=== PATIENT | male | born 1960 | race Caucasian/White ===

== ENCOUNTER 2017-12-17 18:20 | Emergency (ER) | payer OTHER ==
--- NOTE | 2017-12-17 18:28 | PDOC ---
Rapid Medical Evaluation Chief Complaint: Head/Neck problem Time Seen by Provider: 12/17/17 18:26 Medical Evaluation: Allergies Allergy/AdvReac Type Severity Reaction Status Date / Time No Known Allergies Allergy Verified 06/12/12 10:03 12/17/17 18:27 I have performed a brief in-person evaluation of this patient. The patient presents with a chief complaint of: B/l UE numbness x 1 week, now just has LUE numbness. Also c/o stabbing L sided CP x few days. Had similar episode in 2011 w/ no findings on w/u. 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 12/17/17 18:30
[2017-12-17 18:29] VITALS: BP 146/83; PULSE 87; TEMP 98.1; BMI 22.1
[2017-12-17 19:04] LABS: BASO % 0.6 % (0-2.0); EOS % 2.6 % (0-4.5); HEMOGLOBIN 14.5 GM/dL (11.7-16.9); LYMPH % 38.4 % (8-40); MCH 28.5 pg (25.7-33.7); MEAN CELL VOLUME 86.2 fl (80-96); MEAN PLT VOLUME 7.9 fl (7.5-11.1); MONO % 9.3 % (3.8-10.2); NEUT % 49.1 % (42.8-82.8); PLATELET COUNT 213 K/MM3 (134-434); RBC 5.11 M/mm3 (4.00-5.60); RDW 13.3 % (11.9-15.9); WHITE BLOOD COUNT 5.6 K/mm3 (4.0-10.0)
[2017-12-17 19:33] LABS: ANION GAP 7 (8-16); BILIRUBIN,TOTAL 0.8 mg/dL (0.2-1.0); BLOOD UREA NITROGEN 13 mg/dL (7-18); CALCIUM 8.8 mg/dL (8.5-10.1); CHLORIDE 105 mmol/L (98-107); CO2 27 mmol/L (21-32); GLUCOSE,RANDOM 87 mg/dL (74-106); POTASSIUM 3.9 mmol/L (3.5-5.1); SGPT/ALT 49 U/L (12-78); SODIUM 139 mmol/L (136-145); TOT PROT 6.6 g/dl (6.4-8.2)
[2017-12-17 19:37] LABS: ALK PHOS 73 U/L (45-117); SGOT/AST 28 U/L (15-37)
[2017-12-17 21:12] LABS: URINE APPEARANCE CLEAR; URINE BILIRUBIN NEGATIVE (NEGATIVE); URINE BLOOD NEGATIVE (NEGATIVE); URINE COLOR STRAW; URINE GLUCOSE (UA) NEGATIVE (NEGATIVE); URINE KETONE NEGATIVE (NEGATIVE); URINE LEUK ESTERASE NEGATIVE (NEGATIVE); URINE NITRITE NEGATIVE (NEGATIVE); URINE PROTEIN NEGATIVE (NEGATIVE); URINE UROBILINOGEN NEGATIVE mg/dL (0.2-1.0)
[2017-12-17] MEDS ORDERED: ASPIRIN 81 MG CHEWABLE TABLETS ONE (23:09)
--- NOTE | 2017-12-17 23:25 | PDOC ---
History of Present Illness - General History Source: Patient Exam Limitations: No Limitations - History of Present Illness Initial Comments: 12/17/17 23:27 The patient is a 57 year old male, with no significant past medical history, who presents to the emergency department with one week of bilateral upper extremity numbness. The patient states today his left arm is numb from elbow down. He denies right arm numbness today. He reports occasional left sided chest pain to the left anterior and left lateral chest which feels like needles. He denies radiation of pain into his arms or neck. The patient denies shortness of breath, headache and dizziness. The patient denies fever, chills, nausea, vomit, diarrhea and constipation. The patient denies dysuria, frequency, urgency and hematuria. Allergies: NKDA Social history: denies tobacco use PCP - Dr. Nan Sagastume <Gisele Cunningham - Last Filed: 12/18/17 01:10> - General History Source: Patient <OtilioMoi viramontes - Last Filed: 12/18/17 19:21> - General Chief Complaint: Head/Neck problem Stated Complaint: CHEST PAIN Time Seen by Provider: 12/17/17 18:26 Past History <Gisele Cunningham - Last Filed: 12/18/17 01:10> - Past Medical History COPD: No Hypercholesterolemia: No - Suicide/Smoking/Psychosocial Hx Smoking Status: No Smoking History: Never smoked Number of Cigarettes Smoked Daily: 0 <Moi Arceo - Last Filed: 12/18/17 19:21> - Past Medical History Allergies/Adverse Reactions: Allergies Allergy/AdvReac Type Severity Reaction Status Date / Time No Known Allergies Allergy Verified 12/17/17 18:29 Home Medications: Ambulatory Orders No Home Medications 0 dose .ROUTE MEDICT 06/12/12 Review of Systems - Review of Systems Able to Perform ROS?: Yes Comments:: 12/17/17 23:27 CONSTITUTIONAL: Absent: fever, chills, diaphoresis, generalized weakness, malaise, loss of appetite HEENT: Absent: rhinorrhea, nasal congestion, throat pain, throat swelling, difficulty swallowing, mouth swelling, ear pain, eye pain, visual Changes CARDIOVASCULAR: (+) intermittent left sided chest pain. Absent: syncope, palpitations, irregular heart rate, lightheadedness, peripheral edema RESPIRATORY: Absent: cough, shortness of breath, dyspnea with exertion, orthopnea, wheezing, stridor, hemoptysis GASTROINTESTINAL: Absent: abdominal pain, abdominal distension, nausea, vomiting, diarrhea, constipation, melena, hematochezia GENITOURINARY: Absent: dysuria, frequency, urgency, hesitancy, hematuria, flank pain, genital pain MUSCULOSKELETAL: Absent: myalgia, arthralgia, joint swelling SKIN: Absent: rash, itching, pallor HEMATOLOGIC/IMMUNOLOGIC: Absent: easy bleeding, easy bruising, lymphadenopathy, frequent infections ENDOCRINE: Absent: unexplained weight gain, unexplained weight loss, heat intolerance, cold intolerance NEUROLOGIC: (+) bilateral upper extremity numbness. Absent: headache, focal weakness, dizziness, unsteady gait, seizure, mental status changes, bladder or bowel incontinence PSYCHIATRIC: Absent: anxiety, depression, suicidal or homicidal ideation, hallucinations. <Gisele Cunningham - Last Filed: 12/18/17 01:10> *Physical Exam - Vital Signs Last Vital Signs Temp Pulse Resp BP Pulse Ox 98.1 F 87 18 146/83 98 12/17/17 18:27 12/17/17 18:27 12/17/17 18:27 12/17/17 18:27 12/17/17 18:27 - Physical Exam Comments: 12/17/17 23:28 GENERAL: Well developed, well nourished. Awake and alert. No acute distress. HEENT: Normocephalic, atraumatic. PERRLA, EOMI. No conjunctival pallor. Sclera are non- icteric. Moist mucous membranes. Oropharynx is clear. NECK: Supple. Full ROM. No JVD. Carotid pulses 2+ and symmetric, without bruits. No thyromegaly. No lymphadenopathy. CARDIOVASCULAR: Regular rate and rhythm. No murmurs, rubs, or gallops. Distal pulses are 2+ and symmetric. PULMONARY: No evidence of respiratory distress. Lungs clear to auscultation bilaterally. No wheezing, rales or rhonchi. ABDOMINAL: Soft. Non-tender. Non-distended. No rebound or guarding. No organomegaly. Normoactive bowel sounds. MUSCULOSKELETAL Normal range of motion at all joints. No bony deformities or tenderness. No CVA tenderness. EXTREMITIES: No cyanosis. No clubbing. No edema. No calf tenderness. SKIN: Warm and dry. Normal capillary refill. No rashes. No jaundice. NEUROLOGICAL: Alert, awake, appropriate. Cranial nerves 2-12 intact. Normoreflexic in the upper and lower extremities. Sensation intact to light touch. Normal speech. Toes are down-going bilaterally. Gait is normal without ataxia. No focal deficits. PSYCHIATRIC: Cooperative. Good eye contact. Appropriate mood and affect. <Gisele Cunningham - Last Filed: 12/18/17 01:10> - Vital Signs Last Vital Signs Temp Pulse Resp BP Pulse Ox 98.1 F 87 18 146/83 98 12/17/17 18:27 12/17/17 18:27 12/17/17 18:27 12/17/17 18:27 12/17/17 18:27 <Moi Arceo - Last Filed: 12/18/17 19:21> Heart Score/ECG Review - ECG Intrepretation Comment:: 12/17/17 23:45 ECG was read by Dr. Arceo at 18:54 Impression: Normal sinus rhythm. incomplete right BBB. no significant change when compared to ECG from 06/12/12. <Gisele Cunningham - Last Filed: 12/18/17 01:10> ED Treatment Course - LABORATORY CBC & Chemistry Diagram: 12/17/17 18:47 12/17/17 18:47 - ADDITIONAL ORDERS Additional order review: Laboratory Results 12/17/17 12/17/17 21:03 18:47 Sodium 139 Potassium 3.9 Chloride 105 Carbon Dioxide 27 Anion Gap 7 L BUN 13 Creatinine 1.0 D Creat Clearance w eGFR > 60 Random Glucose 87 Calcium 8.8 Total Bilirubin 0.8 D AST 28 ALT 49 Alkaline Phosphatase 73 Creatine Kinase 143 Troponin I < 0.02 Total Protein 6.6 Albumin 4.0 Urine Color Straw Urine Appearance Clear Urine pH 6.0 D Ur Specific [place] 1.005 Urine Protein Negative Urine Glucose (UA) Negative Urine Ketones Negative Urine Blood Negative Urine Nitrite Negative Urine Bilirubin Negative Urine Urobilinogen Negative Ur Leukocyte Esterase Negative 12/17/17 18:47 RBC 5.11 MCV 86.2 MCHC 33.0 RDW 13.3 MPV 7.9 Neutrophils % 49.1 Lymphocytes % 38.4 D Monocytes % 9.3 Eosinophils % 2.6 D Basophils % 0.6 - RADIOLOGY Radiograph Interpretation: DATE OF SERVICE: 2017-12-18 00:28:29 IMAGES: [id number] EXAM: HEAD CT WITHOUT CONTRAST HISTORY: Rule out bleed COMPARISON: None. FINDINGS: The ventricular system is midline and nondilated. The sulcal pattern is normal for the patient's age. There is no bleed, mass, extra-axial fluid collection or mass effect. No skull fracture or skull lesion is identified. There is mucosal thickening in the ethmoid sinuses. The other visualized paranasal sinuses and mastoid air cells are clear. IMPRESSION: No acute pathology. Paulino Mckinley MD 12/18/2017 00:58 EST DATE OF SERVICE: 2017-12-18 00:25:24 IMAGES: [id number] EXAM: CERVICAL SPINE CT W/O CONTR HISTORY: Arm pain. Possible cervical compression COMPARISON: None. FINDINGS: There is no fracture, subluxation, prevertebral soft tissue swelling. There is a small bulging disc osteophyte complex at the C5-6 level which causes moderate right-sided and mild left-sided neural foraminal narrowing. Central canal is patent. No additional significant degenerative changes identified. The lung apices are clear. IMPRESSION: Bulging disc osteophyte complex at C5-6 causes moderate right-sided and mild left-sided neural foraminal narrowing. Paulino Mckinley MD 12/18/2017 01:01 EST <Gisele Cunningham - Last Filed: 12/18/17 01:10> - LABORATORY CBC & Chemistry Diagram: 12/17/17 18:47 12/17/17 18:47 - ADDITIONAL ORDERS Additional order review: Laboratory Results 12/17/17 12/17/17 21:03 18:47 Sodium 139 Potassium 3.9 Chloride 105 Carbon Dioxide 27 Anion Gap 7 L BUN 13 Creatinine 1.0 D Creat Clearance w eGFR > 60 Random Glucose 87 Calcium 8.8 Total Bilirubin 0.8 D AST 28 ALT 49 Alkaline Phosphatase 73 Creatine Kinase 143 Troponin I < 0.02 Total Protein 6.6 Albumin 4.0 Urine Color Straw Urine Appearance Clear Urine pH 6.0 D Ur Specific [place] 1.005 Urine Protein Negative Urine Glucose (UA) Negative Urine Ketones Negative Urine Blood Negative Urine Nitrite Negative Urine Bilirubin Negative Urine Urobilinogen Negative Ur Leukocyte Esterase Negative 12/17/17 18:47 RBC 5.11 MCV 86.2 MCHC 33.0 RDW 13.3 MPV 7.9 Neutrophils % 49.1 Lymphocytes % 38.4 D Monocytes % 9.3 Eosinophils % 2.6 D Basophils % 0.6 <Moi Arceo - Last Filed: 12/18/17 19:21> Medical Decision Making - Medical Decision Making 12/18/17 19:21 Dr. Arceo: The scribe's documentation has been prepared under my direction and personally reviewed by me in its entirery. I confirm that the note above accurately reflects all work, treatment, procedures, and medical decision making performed by me. <Moi Arceo - Last Filed: 12/18/17 19:21> *DC/Admit/Observation/Transfer - Attestations Scribe Attestion: 12/17/17 23:28 Documentation prepared by Gisele Cunningham, acting as medical supply technician for Moi Arceo DO. <Gisele Cunningham - Last Filed: 12/18/17 01:10> - Discharge Dispostion Admit: No <Moi Arceo - Last Filed: 12/18/17 19:21> Diagnosis at time of Disposition: Bulging disc - Discharge Dispostion Disposition: HOME Condition at time of disposition: Stable - Referrals Referrals: Nan Sagastume MD [Primary Care Provider] - - Patient Instructions Printed Discharge Instructions: DI for Herniated Disc Additional Instructions: Please follow up with your primary doctor for referral to orthopedic or neurosurgery. - Post Discharge Activity
--- NOTE | 2017-12-18 12:17 | EKG ---
Test Reason : Blood Pressure : / mmHG Vent. Rate : 072 BPM Atrial Rate : 072 BPM P-R Int : 182 ms QRS Dur : 124 ms QT Int : 406 ms P-R-T Axes : 043 -09 042 degrees QTc Int : 444 ms SINUS RHYTHM WITH PREMATURE SUPRAVENTRICULAR COMPLEXES RIGHT BUNDLE BRANCH BLOCK ABNORMAL ECG WHEN COMPARED WITH ECG OF 17-DEC-2017 18:54, PREMATURE SUPRAVENTRICULAR COMPLEXES ARE NOW PRESENT Confirmed by MIKY STEPHENS, IBRAHIMA ([id number]) on 12/18/2017 12:17:30 PM Referred By: Confirmed By:IBRAHIMA BOLAÑOS MD
--- NOTE | 2017-12-18 16:08 | EKG ---
Test Reason : Blood Pressure : / mmHG Vent. Rate : 073 BPM Atrial Rate : 073 BPM P-R Int : 180 ms QRS Dur : 114 ms QT Int : 376 ms P-R-T Axes : 046 -05 041 degrees QTc Int : 414 ms NORMAL SINUS RHYTHM INCOMPLETE RIGHT BUNDLE BRANCH BLOCK BORDERLINE ECG WHEN COMPARED WITH ECG OF 12-JUN-2012 11:57, NO SIGNIFICANT CHANGE WAS FOUND Confirmed by IBRAHIMA BOLAÑOS MD ([id number]) on 12/18/2017 4:07:54 PM Referred By: Confirmed By:IBRAHIMA BOLAÑOS MD
== END 2017-12-18 02:20 | disposition home or self-care (01) ==
LOC: JER 18:20
DX: M50.222 Other cervical disc displacement at C5-C6 level (principal)
CPT/HCPCS: 36415; 70450-TC; 71046-TC-FY; 72125-TC; 80053; 81003; 82550; 84484; 85025; 93005; 93010; 99283-25

== ENCOUNTER 2021-04-02 09:12 | Emergency (ER) | payer OTHER ==
[2021-04-02] MEDS ORDERED: DEXAMETHASONE SOD PHOSPHATE 4 MG/1 ML VIAL IM ONE (09:21)
[2021-04-02 09:23] VITALS: BP 132/75; PULSE 78; TEMP 98; BMI 22.1
[2021-04-02] MEDS ORDERED: DEXAMETHASONE SOD PHOSPHATE 4 MG/1 ML VIAL ONE (09:24)
== END 2021-04-02 09:40 | disposition home or self-care (01) ==
LOC: FER 09:12
PROC: 3E023GC Introduction of Other Therapeutic Substance into Muscle, Percutaneous Approach (ICD-10-PCS; principal; 2021-04-02)
DX: L23.7 Allergic contact dermatitis due to plants, except food (principal)
CPT/HCPCS: 99284-25

== ENCOUNTER 2021-04-05 15:41 | Emergency (ER) | payer OTHER ==
[2021-04-05 15:50] VITALS: BP 124/76; PULSE 78; TEMP 98; BMI 22.8
== END 2021-04-05 16:11 | disposition home or self-care (01) ==
LOC: FER 15:41
DX: L23.7 Allergic contact dermatitis due to plants, except food (principal)
CPT/HCPCS: 99281-25

== ENCOUNTER 2021-10-31 09:45 | Emergency (ER) | payer OTHER ==
[2021-10-31] MEDS ORDERED: ACETAMINOPHEN 325 MG TABLET (FP) PO ONE (09:47)
[2021-10-31 09:50] VITALS: BP 155/81; PULSE 76; TEMP 98.2; BMI 22.1
[2021-10-31] MEDS ORDERED: ACETAMINOPHEN 325 MG TABLET (FP) ONE (10:03)
== END 2021-10-31 11:24 | disposition home or self-care (01) ==
LOC: FER 09:45
DX: M54.50 Low back pain, unspecified (principal); W00.0XXA Fall on same level due to ice and snow, initial encounter
CPT/HCPCS: 72100-TC-FY; 99283-25

== ENCOUNTER 2025-03-19 20:28 | Emergency (ER) | payer OTHER, MEDICARE ==
[2025-03-19 20:44] VITALS: BP 147/88; PULSE 78; RESP 18; TEMP 98.1; BMI 21.8
[2025-03-19 21:02] LABS: ABSOLUTE IMMATURE GRANULOCYTES 0.01 x10^3/uL (0.0-0.031); BASOPHILS # 0.03 x10^3/uL (0.01-0.08); EOSINOPHIL % 1.6 % (0.8-7.0); EOSINOPHILS # 0.14 x10^3/uL (0.04-0.54); HEMATOCRIT 43.8 % (40.1-51.0); HEMOGLOBIN 14.8 g/dL (13.7-17.5); MCHC 33.8 g/dl (32.3-36.5); MEAN CELL VOLUME 88.1 fl (79.0-92.2); MEAN PLT VOLUME 9.2 fl (9.4-12.4); MONOCYTE # 0.76 x10^3/uL (0.30-0.82); MONOCYTE % 8.6 % (5.3-12.2); PLATELET COUNT 236 x10^3/uL (163-337); RDW 12.2 % (12.2-16.4)
[2025-03-19 21:29] LABS: ALBUMIN 4.2 g/dl (3.4-5.0); ALK PHOS 89 U/L (45-117); ANION GAP 8 mmol/L (4-13); BILIRUBIN,TOTAL 0.9 mg/dl (0.2-1); CALCIUM 9.5 mg/dl (8.5-10.1); CHLORIDE 101 mmol/L (98-107); CO2 30 mmol/L (21-32); CREATININE 0.9 mg/dl (0.6-1.3); GLUCOSE,RANDOM 93 mg/dl (74-106); SGOT/AST 36 U/L (15-37); SGPT/ALT 46 U/L (7-52); SODIUM 139 mmol/L (136-145); TOT PROT 6.5 g/dl (6.4-8.2)
[2025-03-19 22:55] LABS: HCV DIAGNOSTIC IN-HOUSE W/RFLX NON-REACTIVE (NONREACTIVE); HIV INTERPRETATION NEGATIVE (NEGATIVE)
[2025-03-20] MEDS ORDERED: CIPROFLOXACIN 400 MG/D5W 400 MG/200 ML IVPB IVPB ONE (00:06)
[2025-03-20] MEDS: CIPROFLOXACIN 400 MG/D5W 400 MG/200 ML IVPB IVPB ONE (00:14)
[2025-03-20] MEDS: SODIUM CHLORIDE 0.9% 1000 ML INFUS.BAG IV ONE (00:53)
== END 2025-03-20 02:31 | disposition home or self-care (01) ==
LOC: FER 20:28
DX: K57.32 Diverticulitis of large intestine without perforation or abscess without bleeding (principal); R10.32 Left lower quadrant pain
CPT/HCPCS: 36415; 74178-TC; 80053; 85025; 86803; 87389; 99285-25; Q9967